=== PATIENT | male | born 1960 | race Caucasian/White ===

== ENCOUNTER 2018-08-30 11:50 | Outpatient (REF) | payer MEDICAID, SELFPAY ==
[2018-08-30 12:51] LABS: TSH (W/Ref FT4) 1.58 uIU/mL (0.358-3.74)
[2018-08-31 11:25] LABS: HIV-1/2 Ag & Ab Screen Negative (NEGAT)
[2018-08-31 11:34] LABS: Hep A Total Ab w Rflx IgM Negative (NEGAT); Hep B Core Antibody Negative (NEGAT)
[2018-08-31 11:58] LABS: HBs Antibody, Quant <3.1 mIU/mL; Hepatitis B Surface Ab Negative
[2018-08-31 15:21] LABS: Albumin 51.5 % (55.8-66.1); Total Protein 7.2 g/dl (6.3-8.2)
[2018-08-31 18:52] LABS: ALT 41 U/L (7-55); ActiTest Grade A1; ActiTest Interpretation minimal activity; ActiTest Score 0.35; Alpha-2-Macroglobulin 462 mg/dL (100 - 280); Apoliprotein A1 109 mg/dL (>=120); Bilirubin, Total 0.4 mg/dL (<=1.2); FibroTest Interpretation advanced fibrosis; FibroTest Stage F3; GGT 36 U/L (8 - 61); Haptoglobin 145 mg/dL (30 - 200)
== END 2018-08-30 12:10 ==
LOC: NCHCN 11:50
PROVIDERS: PCP Family Medicine; Visit Provider Family Medicine
DX: G60.9 Hereditary and idiopathic neuropathy, unspecified (principal); B19.20 Unspecified viral hepatitis C without hepatic coma
CPT/HCPCS: 82172; 82247; 82977; 83010; 83883; 84460; 86704; 86706; 86709; 87389; 84165; 84443; 87522

== ENCOUNTER 2018-09-08 15:23 | Outpatient (REF) | payer MEDICAID, SELFPAY ==
[2018-09-08 19:16] LABS: HCT 49.1 % (40.0-50.0); HGB 16.4 g/dL (13.5-17.5); Mean Corp. HGB Concentration 33.4 g/dL (32.0-36.0); Mean Corpuscular Hemoglobin 32.2 pg (27.0-33.0); Mean Corpuscular Volume 96.5 fL (80-95); Mean Platelet Volume 11.6 fL (8.0-11.0); Platelet Count 151 x1000/uL (130-400); RBC 5.09 m/cumm (4.50-6.00); RBC Distribution Width 13.2 % (11.8-14.1); White Blood Cell Count 4.74 k/cumm (4.4-10.8)
[2018-09-08 19:34] LABS: ALT 46 U/L (12-78); AST 27 U/L (15-37); Albumin 3.7 g/dL (3.4-5.0); Alkaline Phosphatase 70 U/L (46-116); Anion Gap 6.4 mmol/L (3-11); BUN 10 mg/dL (7-18); Bilirubin, Total 0.4 mg/dL (0.2-1.0); CO2 29.6 mmol/L (21.0-32.0); Chloride 102 mmol/L (98-107); Glucose 71 mg/dL (70-100); Sodium 138 mmol/L (136-145); Total Protein 7.7 g/dL (6.4-8.2)
[2018-09-11 10:51] LABS: Hepatitis B Surface Ag Negative (NEGAT)
[2018-09-11 11:24] LABS: HBs Antibody, Quant <3.1 mIU/mL; Hep A Total Ab w Rflx IgM Negative (NEGAT); Hepatitis B Surface Ab Negative
[2018-09-13 09:58] LABS: ALT 40 U/L (7-55); ActiTest Grade A1; ActiTest Interpretation minimal activity; ActiTest Score 0.34; Alpha-2-Macroglobulin 484 mg/dL (100 - 280); Apoliprotein A1 93 mg/dL (>=120); Bilirubin, Total 0.3 mg/dL (<=1.2); FibroTest Interpretation advanced fibrosis; FibroTest Score 0.71; FibroTest Stage F3; GGT 36 U/L (8 - 61); Haptoglobin 152 mg/dL (30 - 200)
== END 2018-09-08 15:43 ==
LOC: NCHCN 15:23
PROVIDERS: PCP Family Medicine; Visit Provider Family Medicine
DX: B19.20 Unspecified viral hepatitis C without hepatic coma (principal)
CPT/HCPCS: 80053; 82172; 82247; 82977; 83010; 83883; 84460; 85027; 86706; 86709; 87340; 86704

== ENCOUNTER 2018-12-11 14:31 | Outpatient (REF) | payer MEDICAID, SELFPAY ==
[2018-12-11 19:55] LABS: Abs Immature Grans 0.01 k/cumm (0.0-0.09); Absolute Basophil Count 0.02 k/cumm (0.0-0.2); Absolute Eosinophil Count 0.14 k/cumm (0.0-0.7); Absolute Lymphocyte Count 2.13 k/cumm (1.2-3.4); Absolute Monocyte Count 0.52 k/cumm (0.11-0.7); Absolute Neutrophil Count 2.16 k/cumm (1.2-6.7); Basophils % 0.4; Eosinophils % 2.8; HCT 47.1 % (40.0-50.0); HGB 15.4 g/dL (13.5-17.5); Immature Grans % 0.2; Lymphocytes % 42.8; Mean Corp. HGB Concentration 32.7 g/dL (32.0-36.0); Mean Corpuscular Volume 97.9 fL (80-95); Mean Platelet Volume 11.6 fL (8.0-11.0); Monocytes % 10.4; Neutrophils % 43.4; Platelet Count 143 x1000/uL (130-400); RBC 4.81 m/cumm (4.50-6.00); White Blood Cell Count 4.98 k/cumm (4.4-10.8)
[2018-12-11 20:21] LABS: ALT 16 U/L (12-78); AST 17 U/L (15-37); Albumin 3.6 g/dL (3.4-5.0); Alkaline Phosphatase 80 U/L (46-116); BUN 12 mg/dL (7-18); Bilirubin, Total 0.6 mg/dL (0.2-1.0); CREATININE 0.91 mg/dL (0.70-1.30); Chloride 102 mmol/L (98-107); Glucose 91 mg/dL (70-100); Potassium 3.7 mmol/L (3.5-5.1); Sodium 139 mmol/L (136-145); Total Protein 7.4 g/dL (6.4-8.2)
[2018-12-13 14:07] LABS: HCV RNA Detection Quantitative Undetected IU/mL (UNDECT)
== END 2018-12-11 14:51 ==
LOC: NCHCN 14:31
PROVIDERS: PCP Family Medicine; Visit Provider Family Medicine
DX: B19.20 Unspecified viral hepatitis C without hepatic coma (principal)
CPT/HCPCS: 80053; 86803; 85025; 87522

== ENCOUNTER 2019-05-09 14:41 | Outpatient (REF) | payer MEDICAID, SELFPAY ==
[2019-05-11 14:31] LABS: HCV RNA Detection Quantitative Undetected IU/mL (UNDECT)
== END 2019-05-09 15:01 ==
LOC: NCHCN 14:41
PROVIDERS: PCP Family Medicine; Visit Provider Family Medicine
DX: B19.20 Unspecified viral hepatitis C without hepatic coma (principal)
CPT/HCPCS: 87522